=== PATIENT | male | born 1990 | race Two or more races ===

== ENCOUNTER 2019-08-22 22:00 | Emergency (ER) | payer OTHER ==
[~2019-08-22] VITALS: Ht 180.3 cm; Wt 108.0 kg
[2019-08-22 22:01] VITALS: BP 125/84
--- NOTE | 2019-08-22 22:26 | NUR ---
CALLED RT FOR BEATHING TX
[2019-08-22] MEDS ORDERED: ALBUTEROL FS 2.5 MG/0.5 ML VIAL.NEB NEB ONE (22:30)
[2019-08-22] MEDS ORDERED: ALBUTEROL FS 2.5 MG/0.5 ML VIAL.NEB ONE (22:31)
== END 2019-08-22 22:57 ==
LOC: ER 22:01
DX: F45.8 Other somatoform disorders (principal); J45.909 Unspecified asthma, uncomplicated